=== PATIENT | male | born 1975 ===

== ENCOUNTER → 2024-09-28 | Outpatient (CLI) | payer OTHER ==
[2024-09-28 17:42] LABS: ALKALINE PHOSPHATASE 74 U/L (46-116); BUN 13 mg/dl (9-23); CHLORIDE 105 mmol/L (98-107); POTASSIUM 4.7 mmol/L (3.4-5.1); SGPT/ALT 18 U/L (5-49); TOTAL PROTEIN 6.6 gm/dL (6.0-8.0); URIC ACID 5.9 mg/dL (3.7-9.2)
== END | disposition home or self-care (01) ==
LOC: LAB 17:23
PROVIDERS: ATTEND Podiatrist
DX: M10.00 Idiopathic gout, unspecified site (principal); M10.9 Gout, unspecified